=== PATIENT | female | born 1970 | race Caucasian/White ===

== ENCOUNTER 2019-01-02 12:24 | Emergency (ER) | payer BC ==
--- OUTSIDE RECORDS SUMMARY | 2019-01-02 12:46 | XMS REPORT | Continuity of Care Document ---
:1970 Author Organization [facility] Address [address], [place] [id number] Phone Care Team Providers Name Role Phone Babar Nolan MD Unavailable Unavailable Allergies, Adverse Reactions, Alerts Substance Reaction Status sulfasalazine Rash Active gabapentin Active DULOXETINE HCL Active Penicillins Active erythromycin base Active Medications Medication Instructions Dosage Effective Status Comments Dates (start - stop) hydroxychloroquine 200 take 1 tablet by 200 MG - Active mg tablet oral route 2 times every day Salagen (pilocarpine) 5 take 1 tablet by 5 MG - Active mg tablet oral route 3 times every day azathioprine 50 mg take 2 tablet by 2 tablet - Active tablet oral route 2 times every day after meals diclofenac 1 % topical apply (2G) by 2 G - Active gel topical route 4 times every day to the affected area(s) lidocaine HCl 3 % apply by topical 0.00 - Active topical cream route 2 times every day to the affected area(s) Fosamax 70 mg tablet take 1 tablet by 70 MG - Active oral route every week in the morning, at least 30 min before first food, beverage, or medication of day Percocet 5 mg-325 mg take 1 tablet by 1.00 tablet - Active tablet oral route every 6 hours as needed baclofen 10 mg tablet take 1 tablet by 10 MG - Active oral route 2 times every day nortriptyline 10 mg take 1 capsule by 10 MG - Active capsule oral route every day at bedtime Ibuprofen PM 200 mg-25 - Active mg capsule Aleve 220 mg capsule - Active Lyrica 150 mg capsule take 1 capsule by 150 MG - Active oral route 2 times every day hydroxychloroquine 200 take 1 tablet by 200 MG - No Longer mg tablet oral route 2 Active times every day Problems Condition Effective Dates (start - Clinical Status Comments stop) Body mass index (BMI) 27.0-27.9, - adult Trochanteric bursitis of lt hip Trochanteric bursitis of rt hip 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 Raynaud's syndrome without gangrene Rash and other nonspecific skin eruption 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 Other assisted (current) drug therapy Rash and other nonspecific skin eruption 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 Other assisted (current) drug therapy 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 Myalgia 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 Raynaud's syndrome without gangrene 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 senior living current use of systemic steroids Postmenopausal status 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 Rash Other 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 Postmenopausal status Raynaud's syndrome without gangrene 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 Other assisted (current) drug therapy Nicotine dependence, cigarettes, uncomplicated 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 Nicotine dependence, cigarettes, uncomplicated Rash Other assisted (current) drug therapy 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 Nicotine dependence, cigarettes, uncomplicated Encounter for therapeutic drug level monitoring Raynaud's syndrome without gangrene Proteinuria Rash and other nonspecific skin eruption Hypercholesterolemia - Active Peripheral arterial occlusive - Active disease Rheumatoid factor level - finding - Active Rheumatoid factor positive - Active Procedures Procedure Date No information Results Test Name Date and Time Measure Units Reference Range Abnormal Flag Status Comments No information Advance Directives Directive Yes / No Effective Date File Name No information Encounters Encounter Practice Location Reason(s) Diagnoses Date Provider Providers Description For Visit Copied on Encounter Arthritis Arthritis [facility] - MD [facility] 9 5794 PLLC, 5794 PLLC [facility], [place], [place], [id number], [id number], [place]. 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 site w/[place], [address]. [id number], org/sys involv [id number], tel:+[phone] [place]. 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 site w/o 9 [facility] Esqu[facility], 5794 PLLC org/sys 5794 [place] DO [facility] involvOther [facility], [address] [place], [address], [place], (current) drug [place], [place], [place], [place], [place], [id number], [id number], [place], [address]. [place]. 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 site w/o 8 [facility] Es[facility], 5794 PLLC org/sys 5794 [facility] involther [facility], [address] [place], [place], (current) drug [place], [place], [place], therapyRaynaud' [place], [place], [id number], s syndrome [id number], [place], [address]. [place] without [place]. 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 site w/o 8 [facility] Es[facility], 5794 PLLC org/sys 5794 [facility] involther [facility], [address] [place], [address], [place], (current) drug [place], [place], [place], therapyRash and [place], [place], [id number], other [id number], [place], [address]. [place] nonspecific [place]. 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 [place]. tel:+[phone] tel:+ tel:[phone] Arthritis Arthritis RA w/ [facility] rheumatoid MD Eckert. Provider: Associates Associates factor of 8 5794 Alvin PLLC, 5794 PLLC multiple sites [facility] w/o organ [place], Parminder, [address] [place], involvementOthe [place], [place], r assisted [place], St, [place], (current) drug [id number], [place], [id number], [place], [address]. 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 [place]. 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 [place]. 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 [facility], 5794 PLLC steroidsPostmen 5794 [facility] opausal status [facility] [place], [address], [place], [place], [place], [id number], [id number], [place]. 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 [place] mass index [place]. tel:+607 tel:+[phone] (BMI) tel:[phone] 27.0-27.9, [id number] adultLong term current use of systemic steroidsPostmen opausal statusRaynaud's syndrome without gangrene Arthritis Arthritis RA w/ Marvin ESPINOZA Referring [facility] rheumatoid [facility]. 310 Provider: Associates Associates factor of 6 S Lanse Alvin PLLC, [address], [facility] w/o organ [place], Parminder, [address] [place], involvementOthe [place], [place], r termite technician [id number], [place], [place], (current) drug [place]. [place], [id number], therapyNicotine tel:+[phone] [place], [address]. [place] dependence, [id number] tel:+607 tel:[phone] cigarettes, [phone] uncomplicated Arthritis Arthritis RA w/ Marvin ESPINOZA Referring [facility] rheumatoid [address] [facility]. 310 Provider: Associates Associates factor of 6 S Lanse Al[facility], [address], [facility] w/o organ [place], Parminder, [address] [place], involvementNico [place], [place], erika [id number], [place], [place], dependence, [place]. [place], [id number], cigarettes, tel:[phone] [place], [address]. [place] uncomplicatedRa [id number] tel:+[phone] tel:[phone] shOther long [id number] term (current) drug therapy Arthritis Arthritis RA w/ Marvin ESPINOZA Referring [facility] rheumatoid [facility]. 310 Provider: Associates Associates factor of 5 S [facility]se [facility], [address], [facility] w/o organ [place], Parminder, 5 [facility], [place], erika [id number], [place], [place], dependence, [place]. [place], [id number], cigarettes, tel:[phone] [place], [address]. [place] uncomplicatedEn [id number] tel:+[phone] tel:[phone] counter for [id number] therapeutic drug level monitoringRayna ud's syndrome without gangreneProtein uriaRash and other nonspecific skin eruption Arthritis Arthritis Marvin ESPINOZA Referring [facility]. 310 Provider: Efraín Kenny 5 S Shilpi [facility], [address], [facility] [place], Parminder, 5 [place], [place], [place], [id number], [place], [place], [place]. [place], [id number], tel:[phone] [place], [address]. [place] [address] tel:+[phone] tel:[phone] Family History Family Member Diagnosis Age At Onset Sister Systemic lupus erythematosus Father Lower Back Pain Immunizations Vaccine Date Status Comments No information Payers Payer name Insurance type Covered alliance party ID Authorization(s) BCBS No Referral Required [id number] Social History Type Description Quantity Date Captured Comments Sex Female Vital Signs Date / Height Weight BMI Pulse Blood Temperature Respiratory Body Head BMI Pulse Inhaled Time: Rate Pressure Rate Surface Circumference percentile Ox Ox Area No information Chief Complaint And Reason For Visit No information Reason For Referral Reason For Referral No information Plan Of Treatment Date Type Action Status Goal Tobacco cessation counseling completed Goal Tobacco cessation counseling completed Goal Tobacco cessation counseling completed Goal Tobacco cessation counseling completed Goal Tobacco cessation counseling completed Goal Tobacco cessation counseling completed Goal Tobacco cessation counseling completed Goal Tobacco cessation counseling completed Goal Tobacco cessation counseling completed Goal Lifestyle education regarding diet completed Goal Tobacco cessation counseling completed Goal Tobacco cessation counseling completed Referral Referred To: ordered Reinaldo Fish [address] [place] [address], [phone] Ordered: Referrals: Dermatology. Reinaldo Fish. Location: [address] [place] [address] Evaluate and treat Referral Ordered: ordered *FOOT X-RAY, 2 VIEWS Left Referral Ordered: ordered *HAND X-RAY, 2 VIEWS Right Referral Ordered: ordered *HAND X-RAY, 2 VIEWS Left Referral Ordered: ordered *FOOT X-RAY, 2 VIEWS Right Appointment Clay Manuel BOOKED History Of Present Illness Encounter Date Complaint History Of Present Illness No information Functional Status Date Functional Assessment No information Medications Administered Medication Instructions Dosage Effective Dates (start - stop) Status Comments No information Instructions Date Instruction Additional Information Lifestyle education regarding diet Related to Body mass index ( BMI) 27.0-27.9, adult [facility] handout provided and discussed on Rheumatoid Arthritis Risks/benefits of medications reviewed
--- OUTSIDE RECORDS SUMMARY | 2019-01-02 12:46 | XMS REPORT | Continuity of Care Document ---
:1970 Author Organization [facility] Address [address], [place] [id number] Phone Care Team Providers Name Role Phone Humera Frias Unavailable Unavailable Allergies, Adverse Reactions, Alerts Substance Reaction Status sulfasalazine Rash Active gabapentin Active DULOXETINE HCL Active Penicillins Active erythromycin base Active Medications Medication Instructions Dosage Effective Status Comments Dates (start - stop) prednisone 5 mg tablet take 1 tablet by 1 tablet - Active oral route every day hydroxychloroquine 200 take 1 tablet by 200 MG - Active mg tablet oral route 2 times every day Salagen (pilocarpine) 5 take 1 tablet by 5 MG - Active mg tablet oral route 3 times every day azathioprine 50 mg take 2 tablet by 2 tablet - Active tablet oral route 2 times every day after meals Percocet 7.5 mg-325 mg take 1 tablet by 1.00 tablet - Active tablet oral route every 6 hours as needed baclofen 10 mg tablet take 1 tablet by 10 MG - Active oral route 2 times every day nortriptyline 10 mg take 1 capsule by 10 MG - Active capsule oral route every day at bedtime Ibuprofen PM 200 mg-25 - Active mg capsule Lyrica 150 mg capsule take 1 capsule by 150 MG - Active oral route 2 times every day Zithromax Z-Chong 250 mg take 2 tablet by 500 MG - No Longer tablet oral route every Active day for 1 day then 1 tablet (250 mg) by oral route once daily for 4 days Problems Condition Effective Dates (start - Clinical Status Comments stop) Body mass index (BMI) 27.0-27.9, - adult 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 Other residential (current) drug therapy Trochanteric bursitis of lt hip Trochanteric bursitis of rt hip 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 Other residential (current) drug therapy 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 Other residential (current) drug therapy Raynaud's syndrome without gangrene Rash and other nonspecific skin eruption 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 Rash and other nonspecific skin eruption 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 Myalgia 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 Raynaud's syndrome without gangrene 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 Postmenopausal status 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 Rash Other residential (current) drug therapy 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 Postmenopausal status Raynaud's syndrome without gangrene 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 Other residential (current) drug therapy Nicotine dependence, cigarettes, uncomplicated 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 Nicotine dependence, cigarettes, uncomplicated 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 tel:+[phone] tel:[phone] Arthritis Arthritis Rheu arthritis [facility] w rheu factor CDL B DRIVER C Provider: Efraín Kenny [facility] site w/o 9 Humera Moellera PLLC, 5794 PLLC org/sys 5794 Luis ESPINOZA, [facility] involvOther [facility] [address] [facility], terminal block assembler [facility], [place], (current) drug [place], [place], [place], [place], [address]. [id number], [id number], tel:+[phone] [place]. [id number] tel:+[phone] tel:[phone] Arthritis Arthritis [facility] MD Eckert. Efraín Kenny 9 5794 PLLC, 5794 PLLC [facility], [place], [place], [place], [place], [id number], [id number], [place]. [place] tel:+[phone] tel:[phone] Arthritis Arthritis Nov- [facility] CDL B DRIVER C Associates [facility] 9 Humera CarvajalMaureen PLLC, 5794 PLLC 5794 [facility], [facility], [place], [place], [place], [id number], [id number], [place]. tel:+[phone] tel:[phone] Arthritis Arthritis Trochanteric Fe- [facility] bursitis of lt CDL B DRIVER C Provider: Efraín Kenny hipTrochanteric 9 Humera Moellera PLLC, 5794 PLLC bursitis of rt 5794 Luis ESPINOZA, [facility] hipRheu [facility] [address] [place], arthritis [address], Street, [place], rheu factor [place], [place], [place], [facility] site w/[place], [address]. [id number], org/sys involv [id number], tel:+60 [place]. 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 [place]. tel: tel: tel: [phone] Arthritis Arthritis Rheu arthritis [facility] rheu factor 2- CDL B DRIVER C Provider: Efraín [facility] w/o 8 Humera Esquivel PLLC, 5794 PLLC org/sys [address], [address], [place], (current) drug [place], [place], [place], therapyRay[place]ud' [place], [place], [id number], [place] syndrome [id number], [place], [address]. [place] without [place]. tel:60 tel:+315 gangreneRash tel:[phone] and other [id number] nonspecific skin eruption Arthritis Arthritis Rheu arthritis [facility] rheu factor CDL B DRIVER C Provider: Efraín [facility] w/o 8 Humera Esquivel PLLC, 5794 PLLC org/sys 5794 [facility], [address] [place] [address], terminal block assembl[address], [place], (current) drug [place], [place], [place], therapy[place]ash [place], [place], [id number], other [id number], [place], [address]. [place] nonspecific [place]. tel:+60 tel:+315 skin eruption tel:[phone] Arthritis Arthritis RA w/ Kavya [facility] rheumatoid CDL B DRIVER C Provider: Associates Associates factor of 8 Humera CarvajalMaureen Alvin PLLC, 5794 PLLC multiple sites 5794 [facility] w/o organ [place], [address] [place], [address], [place], r residential [place], [place], [place], (current) drug [place], [place], [id number], therapy [id number], [place], [address]. [place]. tel:60 tel:+3154 tel:[phone] Arthritis Arthritis RA w/ [facility] rheumatoid MD Eckert. Provider: Associates Associates factor of 8 5794 Alvin PLLC, 5794 PLLC multiple sites [facility] w/o organ [place], [place], 5 [place], involvementOthe [place], [place], r terminal block assembler [place], [place], [place], (current) drug [id number], [place], [id number], [place], [address]. [place] tel:+3154 tel:60 tel:[phone] Arthritis Arthritis [facility]/ [facility] CDL B DRIVER C Provider: Associates Associates factor of 8 Humera CarvajalMaureen Alvin PLLC, 5794 PLLC multiple sites 5794 [facility] w/o organ [facility] [place], [address] [place], [address], [place], aud's syndrome [place], St, [place], [place], [place], [id number], gangrene [id number], [place], [address]. [place]. tel:+607 tel:+13154 tel:+ [phone] Arthritis Arthritis RA w/ [facility] rheumatoid CDL B DRIVER C Provider: Associates Associates factor of 8 Humera Esquivel PLLC, 5794 PLLC multiple sites [address] [place] [address] w/o organ [facility] Par[place], [address] [place], [facility] [address], [place], r residential [place], [place], [place], (current) drug [place], [place], [id number], therapy [id number], [place], [address]. [place]. 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 tel:+4 tel:[phone] Arthritis Arthritis RA w/ [facility] rheumatoid CDL B DRIVER C Provider: Associates Associates factor of 7 Humera Esquivel PLLC, 5794 PLLC multiple sites [address] [place] [address] w/o organ [facility], [address] [place], [facility] [address], [place], Other residential [place], [place], [place], (current) drug [place], [place], [id number], therapyBody [id number], [place], [address]. [place] mass index [place]. tel:+607 tel:+3154 (BMI) tel:[phone] 27.0-27.9, 760738 adultLong term current use of systemic steroidsPostmen opausal statusRaynaud's syndrome without gangrene Arthritis Arthritis RA w/ Marvin ESPINOZA [facility] rheumatoid - Dodji. 310 Provider: Associates Associates factor of 6 S Shilpi Alvin PLLC, [address], [facility] w/o organ [place], [place], 5 [place], involvementOthe [place], [place], r terminal block assembler [id number], [place], [place], (current) drug [place]. [place], [id number], therapyNicotine tel:[phone] [place], [address]. [place] dependence, [address] tel:+1-607 tel:[phone] cigarettes, [phone] uncomplicated Arthritis Arthritis RA w/ Marvin ESPINOZA Referring [facility] rheumatoid [facility]. 310 Provider: Associates Associates factor of 6 S [place] Alvin PLLC, [address], [facility] DO [facility] w/o organ [place], [place], 5 [place], involvementNico [place], [place], erika [id number], [place], [place], dependence, [place]. [place], [id number], cigarettes, tel:[phone] [place], [address]. [place] uncomplicatedRa [id number] tel:+1-607 tel:[phone] shOther long [id number] term (current) drug therapy Arthritis Arthritis RA / Marvin ESPINOZA Referring [facility] rheumatoid [facility]. 310 Provider: Associates Associates factor of 5 S Shilpi Alvin PLLC, [address], [facility] DO [facility] w/o organ [place], [place], 5 [place], involvementNico [place], [place], erika [id number], [place], [place], dependence, [place]. [place], [id number], cigarettes, tel:[phone] [place], [address]. [place] uncomplicatedEn [id number] tel:+[phone] tel:[phone] counter for [phone] therapeutic drug level monitoringRayna ud's syndrome without gangreneProtein uriaRash and other nonspecific skin eruption Arthritis Arthritis Marvin ESPINOZA Referring [facility]. 310 Provider: Associates Associates 5 S Shilpi Alvin PLLC, [address], [facility] DO [facility] [place], [place], [address] [place], [place], [place], [id number], St, [place], [place]. [place], [id number], tel:[phone] [place], [address] [address] tel:+[phone] tel:[phone] Family History Family Member Diagnosis Age At Onset Sister Systemic lupus erythematosus Father Lower Back Pain Immunizations Vaccine Date Status Comments No information Payers Payer name Insurance type Covered alliance party ID Authorization(s) BCBS No Referral Required [id number] Social History Type Description Quantity Date Captured [...] completed Referral Referred To: ordered Reinaldo Fish [address] [place] [address], [phone] Ordered: Referrals: Dermatology. Reinaldo Fish. Location: [address] [place] [address]. Evaluate and treat Referral Ordered: ordered *FOOT [...]
--- OUTSIDE RECORDS SUMMARY | 2019-01-02 12:46 | XMS REPORT | Continuity of Care Document ---
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 Raynaud's syndrome without gangrene Rash and other nonspecific skin eruption 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 [facility] drug [facility] Rash and other nonspecific skin eruption 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 [facility] drug therapy Myalgia 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 Raynaud's syndrome without gangrene 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 current use of systemic steroids Postmenopausal status 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 Rash Other [facility] ([facility] drug therapy residential current use of systemic steroids Postmenopausal status Raynaud's syndrome without gangrene 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 Associates Associates 9 5794 PLLC, 5794 PLLC [facility], [place], [place], [place], [place], [id number], [id number], [place]. [place] tel:+[phone] tel:[phone] Arthritis Arthritis [facility] POLITICAL ANALYST C Efraín [facility] 9 Humera [place] PLLC, 5794 PLLC 5794 [facility], [facility], [place], [place], [id number], [id number], [place]. tel:+[phone] tel:[phone] Arthritis Arthritis [facility] POLITICAL ANALYST C Efraín [facility] 9 Humera [place] PLLC, 5794 PLLC 5794 [facility], [facility], [place], [place], [place], [id number], [id number], [place]. tel:+[phone] tel:[phone] Arthritis Arthritis Trochanteric [facility] bursitis of lt POLITICAL ANALYST C Provider: Efraín Kenny hipTrochanteric 9 Humera Moellera PLLC, 5794 PLLC bursitis of rt 5794 Luis ESPINOZA, [facility] hipRheu [facility] [address] [facility], arthritis [address], Street, [place], rheu factor [place], [place], [place], [facility] w[place], [address]. [id number], org/sys involv [id number], tel:+60 [place]. [id number] tel: tel:+ [phone] Arthritis Arthritis Rheu arthritis [facility] factor 1- POLITICAL ANALYST C Provider: Efraín [facility] w/o 9 Humera Esquivel PLLC, 5794 PLLC org/sys 5794 [facility], 5 [place], [facility] [address], [place], (current) drug [place], [place], [place], [place], [place], [id number], [id number], [place], [address]. [place]. tel:+60 tel:+ tel:+ [phone] Arthritis Arthritis Rheu arthritis [facility] factor 2 POLITICAL ANALYST C Provider: Efraín [facility] w/o 8 Humera Esquivel PLLC, 5794 PLLC org/sys 5794 [facility] DO [facility], [address] [place], tire mold tester [address], [place], (current) drug [place], St, [place], therapyRaynaud' [place], [place], [id number], s syndrome [id number], [place], [address]. [place] without [place]. tel:60 tel: gangreneRash tel:+ [phone] and other 183649 nonspecific skin eruption Arthritis Arthritis Rheu arthritis [facility] factor 5 POLITICAL ANALYST C Provider: [facility] w/o 8 Humera Esquivel PLLC, 5794 PLLC org/sys 5794 [facility], 5 [place], [facility] [address], [place], (current) drug [place], [place], [place], therapy[place]ash and [place], [place], [id number], other [id number], [place], [address]. [place] nonspecific [place]. tel:+60 tel:+315 skin eruption tel:[phone] Arthritis Arthritis RA w/ [facility] rheumatoid POLITICAL ANALYST C Provider: Efraín Associates factor of 8 Humera Esquivel PLLC, 5794 PLLC multiple sites 5794 [facility] w/o organ [place], [address] [place], [address], [place], r [facility] [place], [place], [place], (current) drug [place], [place], [id number], therapy [id number], [place], [address]. [place]. tel:+60 tel:+315 tel:+ [phone] Arthritis Arthritis RA w/ [facility] rheumatoid MD Eckert. Provider: Associates Associates factor of 8 5794 Alvin PLLC, 5794 PLLC multiple sites [facility] w/o organ [place], Par[place], 5 [place], involvementOthe [place], [place], r [facility] [place], [place], [place], (current) drug [id number], [place], [id number], [place], [address]. [place] tel:+3154 tel:+60 tel:[phone] Arthritis Arthritis MyalgiaRA w/ [facility] rheumatoid POLITICAL ANALYST C Provider: Efraín Associates factor of 8 Humera Esquivel PLLC, 5794 PLLC multiple sites 5794 [facility] w/o organ [place], [address] [place], [address], [place], aud's syndrome [place], St, [place], [place], [place], [id number], gangrene [id number], [place], [address]. [place]. tel:+607 tel:+3154 tel:[phone] Arthritis Arthritis [facility]/ [facility] POLITICAL ANALYST C Provider: Associates Associates factor of 8 Humera Esquivel PLLC, 5794 PLLC multiple sites 5794 [facility] w/o organ [facility] [place], [address] [place], [facility] [address], [place], r tire mold tester [place], [place], [place], (current) drug [place], [place], [id number], therapy [id number], [place], [address]. [place]. 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 tel:+[phone] tel:[phone] Arthritis Arthritis RA w/ [facility] rheumatoid POLITICAL ANALYST C Provider: Associates Associates factor of 7 Humera Esquivel PLLC, 5794 PLLC multiple sites 5794 [facility] w/o organ [facility] [place], [address] [place], [facility] [address], [place], Other tire mold tester [place], [place], [place], (current) drug [place], [place], [id number], therapyBody [id number], [place], [address]. [place] mass index [place]. tel:+607 tel:+13154 (BMI) tel:+[phone] 27.0-27.9, 085031 adultLong term current use of systemic steroidsPostmen opausal statusRaynaud's syndrome without gangrene Arthritis Arthritis RA w/ Marvin ESPINOZA [facility] rheumatoid Dodji. 310 Provider: Associates Associates factor of 6 S Shilpi Alvin PLLC, [address], [facility] w/o organ [place], Par[place], 5 [place], involvementOthe [place], [place], r [facility] [id number], [place], [place], (current) drug [place]. [place], [id number], therapyNicotine tel:+[phone] [place], [address]. [place] dependence, 653113 tel:+1-607 tel:+[phone] cigarettes, [phone] uncomplicated Arthritis Arthritis RA w/ Marvin ESPINOZA Referring [facility] rheumatoid [facility]. 310 Provider: Associates Associates factor of 6 S Staples Alvin PLLC, [address], [facility] w/o organ [place], Parmin[place], 5 [place], [facility], [place], erika [id number], [place], [place], dependence, [place]. [place], [id number], cigarettes, tel:+[phone] [place], [address]. [place] uncomplicatedRa [id number] tel:+1-607 tel:[phone] shOther long [id number] term (current) drug therapy Arthritis Arthritis RA w/ Marvin ESPINOZA Referring [facility] rheumatoid [facility]. 310 Provider: Associates Associates factor of 5 S Staples Alvin PLLC, [address], [facility] w/o organ [place], [place], 5 [place], [facility], [place], erika [id number], [place], [place], dependence, [place]. [place], [id number], cigarettes, tel:+[phone] [place], [address]. [place] uncomplicatedEn 689830 tel:+1-607 tel:[phone] counter for [id number] therapeutic drug level monitoringRayna ud's syndrome without gangreneProtein uriaRash and other nonspecific skin eruption Arthritis Arthritis Marvin ESPINOZA Referring [facility]. 310 Provider: Efraín Kenny 5 S Shilpi Alvin PLLC, [address], [facility] [place], [place], 5 [place], [place], [place], [id number], St, [place], [place]. [place], [id number], tel:+[phone] [place], [address]. [place] 56[address]86 tel:+[phone] tel:[phone] Family History Family Member Diagnosis Age At Onset Sister Systemic lupus erythematosus Father Lower Back Pain Immunizations Vaccine Date Status Comments No information Payers Payer name Insurance type Covered constitution party ID Authorization(s) BCBS No Referral Required [id number] Social History Type Description Quantity Date Captured [...] completed Referral Referred To: ordered Reinaldo Fish [address] [place] [address], [address] [phone] Ordered: Referrals: Dermatology. Reinaldo Fish. Location: [address] [place] [address] Evaluate and treat Referral Ordered: ordered *FOOT [...]
--- OUTSIDE RECORDS SUMMARY | 2019-01-02 12:46 | XMS REPORT | Continuity of Care Document ---
:1970 Author Organization [facility] Address [address], [place] [id number] Phone Care Team Providers Name Role Phone [...] oral route once daily for 4 days diclofenac 1 % topical apply (2G) by 2 G - No Longer gel topical route 4 Active times every day to the affected area(s) lidocaine HCl 3 % apply by topical 0.00 - No Longer topical cream route 2 times Active every day to the affected area(s) Fosamax 70 mg tablet take 1 tablet by 70 MG - No Longer oral route every Active week in the morning, at least 30 min before first food, beverage, or medication of day Percocet 5 mg-325 mg take 1 tablet by 1.00 tablet - No Longer tablet oral route every Active 6 hours as needed Aleve 220 mg capsule - No Longer Active Problems Condition Effective Dates (start - Clinical Status Comments stop) Body mass index (BMI) 27.0-27.9, - adult 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 Trochanteric bursitis of lt hip Trochanteric bursitis of rt hip 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 Other group home (current) drug therapy 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 Other group home (current) drug therapy Raynaud's syndrome without gangrene Rash and other nonspecific skin eruption 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 Rash and other nonspecific skin eruption 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 Other group home (current) drug therapy 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 Other group home (current) drug therapy Myalgia 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 Raynaud's syndrome without gangrene 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 Postmenopausal status 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 [facility] current use of systemic steroids Postmenopausal status Raynaud's syndrome without gangrene 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 Other group home (current) drug therapy Nicotine dependence, cigarettes, uncomplicated 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 Nicotine dependence, cigarettes, uncomplicated Rash Other group home (current) drug therapy 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 Nicotine dependence, cigarettes, uncomplicated Encounter for therapeutic drug level monitoring Raynaud's syndrome without gangrene Proteinuria Rash and other nonspecific skin eruption Hypercholesterolemia - Active Peripheral arterial occlusive - Active disease Rheumatoid factor level - finding - Active Rheumatoid factor positive - Active Procedures Procedure Date ROUTINE VENIPUNCTURE COMPLETE CBC W/AUTO DIFF WBC RBC SED RATE, AUTOMATED C-REACTIVE PROTEIN ASSAY OF CREATININE TRANSFERASE (AST) (SGOT) ALANINE AMINO (ALT) (SGPT) OFFICE/OUTPATIENT VISIT, EST Results Test Name Date and Time Measure Units Reference Range Abnormal Flag Status Comments Panel Description: CBC Final WBC 15:15:00 6.9 10 3.7-10.1 Final RBC 15:15:00 4.87 10 3.50-5.50 Final HGB 15:15:00 15.4 g/dL 12.0-16.0 Final HCT 15:15:00 48.4 % 36.0-48.0 H Final MCV 15:15:00 99.4 fL 80.0-100.0 Final MCH 15:15:00 31.7 pg 26.0-34.0 Final MCHC 15:15:00 31.9 g/dL 31.0-37.0 Final RDW 15:15:00 15.7 % 10.0-15.0 H Final PLATELETS 15:15:00 238 10 150-500 Final MPV 15:15:00 9.2 fL 6.0-10.0 Final [place]UST[place]# 15:15:00 3.50 10 2.10-8.00 Final LYM# 15:15:00 2.73 10 1.00-5.00 Final MONO# 15:15:00 0.51 10 0.10-1.00 Final EOS# 15:15:00 0.1 10 0.0-0.5 Final BASO# 15:15:00 0.1 10 0.0-0.2 Final [place]% 15:15:00 50.8 % 50.0-80.0 Final LYM% 15:15:00 39.6 % 25.0-50.0 Final MONO% 15:15:00 7.4 % 2.0-10.0 Final EOS% 15:15:00 1.0 % 0.0-5.0 Final BASO% 15:15:00 1.2 % 0.0-4.0 Final Panel Description: ESR Final ESR 15:15:00 30 mm/Hr 0-20 H Final Panel Description: ALT Final ALT 15:15:00 28 U/L 30-65 L Final Panel Description: AST Final AST 15:15:00 38 U/L 15-37 H Final Panel Description: CREATININE Final CREATININE 15:15:00 0.7 mg/dL 0.6-1.2 Final eGFR 15:15:00 >60 mL/min/1.73m Final Panel Description: CRP Final CRP 15:15:00 <0.2 mg/dL 0.2-1.0 L Final Advance Directives Directive Yes / No Effective Date File Name No information Encounters Encounter Practice Location Reason(s) Diagnoses Date Provider Providers Description For Visit Copied on Encounter [facility] 6-201 [facility] 9 [facility], 5794 PLLC 5794 [facility], [facility], [place], [place], [id number], [id number], [place]. tel:[phone] tel:[phone] OFFICE/OUTPA Arthritis Arthritis *Establish Rheu arthritis December- [facility] Referring 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 [id number], [id number], tel:+[phone] [place]. [id number] tel:+ tel:[phone] Arthritis Arthritis December- [facility] MD Eckert. Efraín Kenny 9 5794 PLLC, 5794 PLLC [facility], [place], [place], [place], [place], [place], [id number], [id number], [place]. 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 [id number], org/sys involv [id number], tel:+[phone] [place]. 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 [place]. 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 [place] without [place]. 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 [place] nonspecific [place]. 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 [place]. tel:[phone] tel:[phone] tel:[phone] Arthritis Arthritis RA w/ [facility] rheumatoid MD Eckert. Provider: Associates Associates factor of 8 5794 Alvin PLL[facility], 5794 PLLC multiple sites [facility] w/o organ [place], [place], [address] [place], involvementOthe [place], [place], r regional intermodal truck driver [place], St, [place], (current) drug [id number], [place], [id number], [place], [address]. 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 [place]. 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 [place]. 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 tel:+ tel:+ [phone] Arthritis Arthritis RA w/ [facility] rheumatoid 6- REAL ESTATE FINANCIAL ANALYST C Provider: Associates Associates factor of 7 [facility]era CarvajalMaureen Alvin PLLC, 5794 PLLC multiple sites 5794 [facility] w/o organ [place], [address] [place], [facility] [address], [place], Other group home [place], [place], [place], (current[place] drug [place], [place], [id number], therapyBody [id number], [place], [address]. [place] mass index [place]. tel:+607 tel:+4 (BMI) tel:+ [phone] 27.0-27.9, [id number] adultLong term current use of systemic steroidsPostmen opausal statusRaynaud's syndrome without gangrene Arthritis Arthritis RA w/ Marvin ESPINOZA [facility] rheumatoid 7- Dodji. 310 Provider: Associates Associates factor of 6 S Shilpi Alvin [facility], [address], [facility] w/o organ [place], [place], 5 [place], involvementOthe [place], [place], r regional intermodal truck driver [id number], St, [place], (current) drug [place], [id number], therapyNicotine tel:+[phone] [place], [address]. [place] dependence, [address] tel:+[phone] tel:[phone] cigarettes, [id number] [id number] uncomplicated Arthritis Arthritis RA w/ Marvin ESPINOZA Referring [facility] rheumatoid [facility]. 310 Provider: Associates Associates factor of 6 S Shilpi [facility]vin [facility], [address], [facility] w/o organ [place], [place], 5 [place], [facility], [place], erika [id number], [place], [place], dependence, [place]. [place], [id number], cigarettes, tel:[phone] [place], [address]. [place] uncomplicatedRa [id number] tel:+[phone] tel:[phone] shOther long [id number] [id number] term (current) drug therapy Arthritis Arthritis RA w/ Marvin ESPINOZA Referring [facility] rheumatoid [facility]. 310 Provider: Associates Associates factor of 5 S Alexandria Alvin [facility], [address], [facility] w/o organ [place], [place], 5 [place], [facility], [place], erika [id number], [place], [place], dependence, [place]. [place], [id number], cigarettes, tel:[phone] [place], [address]. [place] uncomplicatedEn [id number] tel:+[phone] tel:[phone] counter for [phone] therapeutic drug level monitoringRayna ud's syndrome without gangreneProtein uriaRash and other nonspecific skin eruption Arthritis Arthritis Marvin ESPINOZA Referring [facility]. 310 Provider: Efraín Kenny 5 S Alexandria [facility], [address], [facility] [place], [place], 5 [place], [place], [place], [id number], [place], [place], [place]. [place], [id number], tel:[phone] [place], [address]. [place] [id number] tel:+[phone] tel:[phone] Family History Family Member Diagnosis Age At Onset Sister Systemic lupus erythematosus Father Lower Back Pain Immunizations Vaccine Date Status Comments No information Payers Payer name Insurance type Covered alliance party ID Authorization(s) BCBS No Referral Required [id number] Social History Type Description Quantity Date Captured Comments Alcohol Use Details 2 drinks rarely Caffeine Use Details Unknown Tobacco Use Status Cigarette smoker Smoking Status Current every day smoker Smoking Tobacco Use Cigarette: Years Used 30 Cigarette: 20 Packs per day, Pack Year: 30 Details Sex Female Vital Signs Date / Height Weight BMI Pulse Blood Temperature Respiratory Body Head BMI Pulse Inhaled Time: Rate Pressure Rate Surface Circumference percentile Ox Ox Area 67.00 174.00 27.2 126/70 in lbs 5 mm[Hg] 2:03 kg/m PM eter (2) Chief Complaint And Reason For Visit No [...] completed Referral Referred To: ordered Reinaldo Fish [address] [place] [address], [phone] Ordered: Referrals: Dermatology. Reinaldo Fish. Location: [address] [place] [address] Evaluate and treat Referral Ordered: ordered *FOOT X-RAY, 2 VIEWS Left Referral Ordered: ordered *HAND X-RAY, 2 VIEWS Right Referral Ordered: ordered *HAND X-RAY, 2 VIEWS Left Referral Ordered: ordered *FOOT X-RAY, 2 VIEWS Right Appointment Clay Manuel BOOKED History Of Present Illness Encounter Date Complaint History Of Present Illness *Established Patient The pain severity is 7/10. Patient is experiencing generalized morning stiffness for all day, eye symptoms including dryness, fatigue, dry mouth and rash. Patient denies having hair loss, diarrhea, infection, loss of appetite, fever, headache, joint swelling, numbness/tingling, Raynaud's, oral ulcers (mouth sores), back/neck pain, weight loss, photosensitivity, pleuritic pain and shortness of breath. Functional Status Date Functional Assessment No information Medications Administered Medication Instructions Dosage Effective Dates (start - stop) Status Comments No information Instructions Date Instruction Additional Information Lifestyle education regarding diet Related to Body mass index ( BMI) 27.0-27.9, adult [facility] handout provided and discussed on Rheumatoid Arthritis Risks/benefits of medications reviewed
[2019-01-02] MEDS ORDERED: predniSONE TAB* 50 MG PO ONE (15:46)
[2019-01-02] MEDS ORDERED: LORazepam TAB(*) 1 MG PO ONE (15:47)
--- NOTE | 2019-01-02 17:09 | ED ---
Back Pain - HPI Summary HPI Summary: patient is a 48-year-old female with a history of back pain presenting to the ED with acute low back pain which was radiating to the bilateral lower extremities. She is endorsing some numbness and tingling to the lateral sides of both the left and right lower extremities radiating into the feet. Denies any weakness to the legs. Denies any foot drop. Denies any bladder or bowel dysfunction, however does admit to having to "push" the last time she used the restroom to evacuate her bladder. She denies any tingling or numbness to the vagina or to the anal region. She denies any pain to the buttocks. She states the pain began to the right side lower back and radiated to the left lower back and now is across the entire back radiating to the bilateral lower extremities. Patient states she has been unable to ambulate. She has been using her at home for the past day to help her to use the restroom and get in and out of bed. Symptoms are worse with standing straight, better with lying flat and also sitting upright. She has chronic pain and takes hydrocodone 7.5 mg 3 times daily. Denies any fevers, sweats, chills. Patient denies any IV drug use. She is tearful on arrival and is endorsing 10/10 pain. - History of Current Complaint Chief Complaint: EDBackInjuryPain Stated Complaint: BACK PAIN/LEG PAIN/CANT WALK PER PT Time Seen by Provider: 01/02/19 14:01 Hx Obtained From: Patient Hx Last Menstrual Period: 2 WKS AGO Onset/Duration: Sudden Onset Onset/Duration: Started Days Ago Timing: Constant Back Pain Location: Is Diffuse - low back pain Severity Initially: Moderate Severity Currently: Moderate Pain Intensity: 10 Pain Scale Used: 0-10 Numeric Character: Aching Alleviating Symptom(s): Rest Associated Signs And Symptoms: Positive: Negative. Negative: Swelling, Redness , Bruising - Risk Factors AAA Risk Factors: Negative Cauda Equina Risk Factors: Negative Epidural Abscess Risk Factors: Negative - Allergies/Home Medications Allergies/Adverse Reactions: Allergies Allergy/AdvReac Type Severity Reaction Status Date / Time Penicillins Allergy Severe Swelling Verified 10/29/18 14:35 Of Face,Lips,& Throat gabapentin [From Neurontin] AdvReac FEELS WIRED Verified 10/29/18 14:35 seratonin reuptake inhibitors AdvReac Severe SEROTONIN Uncoded 10/29/18 14:35 SYNDROME Home Medications: Home Medications Ibuprofen TAB* [Motrin TAB* 400 MG] 400 mg PO Q6H PRN 01/02/19 [History Confirmed 01/02/19] Oxycodone HCl/Acetaminophen [Percocet] 1 tab PO TID PRN MDD 3 01/02/19 [History Confirmed 01/02/19] predniSONE [Prednisone 5 MG TAB] 5 mg PO DAILY 01/02/19 [History Confirmed 01/02] PMH/Surg Hx/FS Hx/Imm Hx Previously Healthy: Yes Endocrine/Hematology History: Reports: Other Endocrine/Hematological Disorders - reynauds, sjogren's syndrome, ?connective tissue disorder Denies: Hx Diabetes Cardiovascular History: Reports: Other Cardiovascular Problems/Disorders - chronic tachycardia; peripheral artery disease (femoral bypass) Denies: Hx Hypertension, Hx Pacemaker/ICD Respiratory History: Denies: Hx Asthma GI History: Reports: Other GI Disorders - celiac disease, lactose intolerance History: Denies: Hx Renal Disease Musculoskeletal History: Reports: Hx Arthritis - rheumatoid arthritis, Hx Back Problems, Hx Fibromyalgia, Hx Orthopedic Injury, Other Musculoskeletal History - ?connective tissue disorder Sensory History: Reports: Hx Cataracts, Hx Contacts or Glasses, Other Sensory Impairments - dentures Denies: Hx Hearing Aid Opthamlomology History: Reports: Hx Cataracts, Hx Contacts or Glasses, Other Sensory Impairments - dentures Psychiatric History: Denies: Hx Panic Disorder - Surgical History Surgery Procedure, Year, and Place: BY FEMORAL BY-PASS--2007. APPENDECTOMY 1988. ELBOW FX REPAIR. TUBAL LIGATION 1989. SALIVARY GLAND SURGERY 2016. CATARACTS 2017 - Immunization History Hx Pertussis Vaccination: No Immunizations Up to Date: Yes Infectious Disease History: No Infectious Disease History: Denies: Traveled Outside the [place] in Last 30 Days - Family History Known Family History: Positive: Cardiac Disease, Hypertension - Social History Occupation: Unemployed, Disabled Lives: With Family Alcohol Use: None Hx Substance Use: No Substance Use Type: Reports: None Hx Tobacco Use: Yes Smoking Status (MU): Heavy Every Day Tobacco Smoker Amount Used/How Often: 1 PPD Length of Time of Smoking/Using Tobacco: 30 Have You Smoked in the Last Year: Yes Review of Systems Constitutional: Negative Negative: Fever, Chills, Fatigue, Skin Diaphoresis Negative: Palpitations, Chest Pain Negative: Shortness Of Breath, Cough Genitourinary: Negative Positive: no symptoms reported, see HPI Positive: Arthralgia - low back pain - diffuse Skin: Negative All Other Systems Reviewed And Are Negative: Yes Physical Exam Triage Information Reviewed: Yes Vital Signs On Initial Exam: Initial Vitals Temp Pulse Resp BP Pulse Ox 97.8 F 110 16 127/91 95 01/02/19 12:26 01/02/19 12:26 01/02/19 12:01/02/19 12:01/02/19 12:26 Vital Signs Reviewed: Yes Appearance: Positive: Well-Appearing, Well-Nourished Skin: Positive: Warm, Skin Color Reflects Adequate Perfusion Head/Face: Positive: Normal Head/Face Inspection Eyes: Positive: EOMI, Conjunctiva Clear Neck: Positive: Supple, No Lymphadenopathy Respiratory/Lung Sounds: Positive: Clear to Auscultation, Breath Sounds Present Cardiovascular: Positive: RRR, Pulses are Symmetrical in both Upper and Lower Extremities Musculoskeletal: Positive: Pain @ - low back pain Neurological: Positive: Sensory/Motor Intact, Alert, Oriented to Person Place, Time, Speech Normal Psychiatric: Positive: Affect/Mood Appropriate Diagnostics - Vital Signs Vital Signs Temp Pulse Resp BP Pulse Ox 01/02/19 16:41 98.4 F 99 18 117/77 98 01/02/19 16:11 18 01/02/19 12:26 97.8 F 110 16 127/91 95 - Laboratory Lab Statement: Any lab studies that have been ordered have been reviewed, and results considered in the medical decision making process. Back Pain Course/Dx - Course Course Of Treatment: Patient is evaluated for acute low back pain. She denies any known trauma. She states the back pain began approximately 2 days ago and states it has been worsening. She denies any bladder or bowel dysfunction, however is endorsing having to "push" to evacuate her bladder. She denies any nose or tingling to this area. On physical examination, patient is able to plantar flex and dorsiflex the feet and there is no weakness noted bilaterally. No weakness noted with flexion and extension or abduction and abduction of the bilateral hips. Denies any knee pain bilaterally. Pulses +2 intact. No step-off noted. No identify signs of trauma. Patient is refusing to ambulate due to pain. CT obtained which shows no acute findings. I discussed with the patient at length her return precautions including bladder or bowel dysfunction. She is afebrile on arrival. She is tearful on exam. She does take hydrocodone 7.5 mg at baseline 3 times daily for chronic pain. She has been given prednisone while in the ED. She is prescribed prednisone, Flexeril and is given a lidocaine patch in the ED. She is given gentle exercises and diagnosed with lumbar radiculopathy. Patient is refusing to ambulate, however is able to move her lower extremities well and has been is at bedside stating he will be able to take care of her at this time to help her ambulate in and out of her chair to use the restroom. She does also have a walker at home. - Diagnoses Differential Diagnosis/HQI/PQRI: Positive: Cauda Equina Syndrome, Compressive Cord Syndrome, Herniated Disc, Strain, Sprain Provider Diagnoses: Lumbar radiculopathy Discharge - Sign-Out/Discharge Documenting (check all that apply): Patient Departure Patient Received Moderate/Deep Sedation with Procedure: No - Discharge Plan Condition: Stable Disposition: HOME Prescriptions: Cyclobenzaprine TAB* [Flexeril TAB*] 10 mg PO BID PRN #10 tab MDD 2 PRN Reason: Spasms predniSONE TAB* [Deltasone TAB*] 50 mg PO DAILY #5 tab MDD 1 Patient Education Materials: Lumbar Radiculopathy (ED), Lower Back Exercises ( ED) Referrals: Courtney Smith MD [Primary Care Provider] - Additional Instructions: Prednisone once daily 5 days, he will start this medication tomorrow in the morning Flexeril up to twice daily for muscle spasms, take this on opposite schedule of your at home pain medication Ibuprofen 600 mg 3 times daily Moist heat to the area Gentle stretches Lidocaine patch, remove in approximately 12 hours or tomorrow morning Do not use moist heat over the area of the lidocaine patch He may also use [id number] BenGay for some discomfort, again though do not use any heat to the area if he used BenGay Please follow-up with PCP and your neurosurgeon Return to the ED if he develop any worsening or changing symptoms including bladder or bowel dysfunction. If you feel you are unable to urinate or help bowel movement or have any numbness or tingling in these areas, he need to return to the ED immediately - Billing Disposition and Condition Condition: STABLE Disposition: Home
[2019-01-02] MEDS ORDERED: Lidocaine PATCH 5%* 1 PATCH TRANSDERM SCH (18:00)
[2019-01-02] MEDS ORDERED: Lidocaine PATCH 5%* 1 PATCH ONE (18:02)
[2019-01-02 18:28] VITALS: BP 103/59
[2019-01-02] MEDS ORDERED: Lidocaine Patch REMOVE* 1 NOTE MISC SCH (21:00)
== END 2019-01-02 18:27 | disposition home or self-care (01) ==
LOC: ED 12:24
DX: M54.16 Radiculopathy, lumbar region (principal); I73.00 Raynaud's syndrome without gangrene; I73.9 Peripheral vascular disease, unspecified; K90.0 Celiac disease; M06.9 Rheumatoid arthritis, unspecified; F17.210 Nicotine dependence, cigarettes, uncomplicated; Z88.0 Allergy status to penicillin; Z88.8 Allergy status to other drugs, medicaments and biological substances
CPT/HCPCS: 72131; 99283; A9270-GY; J7512